=== PATIENT | male | born 1970 | race Caucasian/White ===

== ENCOUNTER 2020-10-09 20:46 | Emergency (ER) | payer OTHER ==
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
[2020-10-09] MEDS ORDERED: Bacitracin Oint 1 GM U/D Packet TOP ONE (21:34)
[2020-10-09] MEDS ORDERED: Diphtheria,Pertussis(Acell),Tetanus Vaccine 0.5 ML Syringe IM ONE (21:34)
== END 2020-10-09 21:46 ==
LOC: JP.ED 20:46
DX: S50.312A Abrasion of left elbow, initial encounter (principal); F10.129 Alcohol abuse with intoxication, unspecified; Z72.0 Tobacco use; Z23 Encounter for immunization; Y90.5 Blood alcohol level of 100-119 mg/100 ml; V49.49XA Driver injured in collision with other motor vehicles in traffic accident, initial encounter; Y92.410 Unspecified street and highway as the place of occurrence of the external cause
CPT/HCPCS: 90471; 90715; 99284